=== PATIENT | female | born 1945 | race Caucasian/White ===

== ENCOUNTER → 2018-02-15 | Outpatient (CLI) | payer OTHER | END | disposition home or self-care (01) | LOC: RAH 10:03 | PROVIDERS: ATTEND Family Medicine | DX: Z12.31 Encounter for screening mammogram for malignant neoplasm of breast (principal) | CPT/HCPCS: 77067 ==

== ENCOUNTER 2018-03-21 22:48 | Emergency (ER) | payer OTHER ==
[2018-03-21] MEDS ORDERED: ACETAMINOPHEN-CODEINE ELIXIR 5 ML UDCUP ONE (23:43)
[2018-03-21 23:49] LABS: BASOPHILS % (AUTO) 0.7 % (0.0-5.0); EOSINOPHILS % (AUTO) 3.1 % (0.0-8.0); HEMATOCRIT 35.9 % (36-48); LYMPHOCYTES % (AUTO) 29.1 % (21.0-51.0); MEAN CORPUSCULAR HEMOGLOBIN 30.9 pg (27.0-33.0); MEAN CORPUSCULAR HGB CONC 33.2 g/dL (32.0-36.0); MEAN CORPUSCULAR VOLUME 93.1 fL (79-99); MONOCYTES % (AUTO) 6.4 % (3.0-13.0); NEUTROPHILS % (AUTO) 60.7 % (40.0-77.0); PLATELET COUNT (AUTO) 250 K/uL (130-400); RED BLOOD CELL COUNT(AUTO) 3.85 MIL/uL (4.00-5.50); RED CELL DISTRIBUTION WIDTH 13.9 % (11.0-15.5); WHITE BLOOD COUNT (AUTO) 6.4 K/uL (4.8-10.8)
[2018-03-21 23:57] LABS: CREATININE 0.8 mg/dL (0.5-1.5); POTASSIUM 3.8 mmol/L (3.5-5.1)
[2018-03-21 23:59] LABS: INR 0.96 (0.85-1.15); PARTIAL THROMBOPLASTIN TIME 25.9 SEC (26.3-35.5); PROTHROMBIN TIME 10.1 SEC (9.6-11.6)
[2018-03-22 00:02] LABS: ALBUMIN 3.5 g/dL (3.5-5.0); BILIRUBIN,TOTAL 0.2 mg/dL (0.2-1.0); TOTAL PROTEIN, SERUM 7.1 g/dL (6.0-8.3)
== END 2018-03-22 01:20 | disposition home or self-care (01) ==
LOC: EDH 22:48
DX: S80.02XA Contusion of left knee, initial encounter (principal); I10 Essential (primary) hypertension; E78.5 Hyperlipidemia, unspecified; E03.9 Hypothyroidism, unspecified; Z88.0 Allergy status to penicillin; W18.39XA Other fall on same level, initial encounter; Y93.01 Activity, walking, marching and hiking; Y92.098 Other place in other non-institutional residence as the place of occurrence of the external cause; Y99.8 Other external cause status
CPT/HCPCS: 36415; 73562; 73700; 80053; 85025; 85610; 85730; 93005

== ENCOUNTER → 2019-08-31 | Outpatient (CLI) | payer OTHER | END | disposition home or self-care (01) | LOC: RAH 09:55 | PROVIDERS: ATTEND Family Medicine | DX: Z12.31 Encounter for screening mammogram for malignant neoplasm of breast (principal) | CPT/HCPCS: 77067 ==

== ENCOUNTER → 2021-01-11 | Outpatient (CLI) | payer OTHER | END | disposition home or self-care (01) | LOC: RAH 08:38 | PROVIDERS: ATTEND Family Medicine | DX: Z12.31 Encounter for screening mammogram for malignant neoplasm of breast (principal) | CPT/HCPCS: 77067 ==

== ENCOUNTER 2025-01-02 21:52 | Observation (INO) | payer OTHER ==
[~2025-01-02] VITALS: Ht 175.3 cm; Wt 30.9 kg
--- NOTE | 2025-01-02 22:00 | NUR ---
PATIENT TAKEN TO CT SCAN
--- NOTE | 2025-01-02 22:30 | NUR ---
PATIENT BACK FROM CT SCAN
--- NOTE | 2025-01-02 22:44 | HMCIMG ---
CT HEAD/BRAIN W/O CONTRAST HISTORY: Status post fall COMPARISON: 01/02/2025 TECHNIQUE: Multiple sequential axial images of the head were obtained from the base of the skull through vertex. Patient was not given contrast through intravenous route. FINDINGS: The ventricles and extraventricular CSF spaces are dilated consistent with cerebral atrophy. Nonspecific white matter changes seen. There is right frontal scalp soft tissue swelling. There is no midline shift, mass effect or herniation. No acute intracranial bleed is seen. Visualized portion of the paranasal sinuses are grossly within normal limits. IMPRESSION: 1. No acute intracranial bleed is seen. 2. Atrophy with white matter changes. CT was performed with one or more following dose reduction techniques: automated exposure control, adjustment of the mA and kv according to patient's size, or use of a iterative reconstruction technique.
--- NOTE | 2025-01-02 22:47 | HMCIMG ---
CT CERVICAL SPINE W/O CONTRAST HISTORY: Status post trauma COMPARISON: None TECHNIQUE: Multiple sequential axial images of the cervical spine were obtained including post processing sagittal and coronal reconstruction images. Patient was not given contrast through intravenous route. FINDINGS: There are degenerative changes with cervical spine spondylosis. Disc space narrowing are seen at C5-6 and C6-7 levels. There is disc/osteophyte complex at C3-4 and C5-6 levels. There is straightening of normal lordotic cervical curvature which may be related to muscle spasm or positioning. There is no loss of vertebral height. Evaluation for disc and cord pathology is limited with CT study. No evidence of fracture or dislocation is seen. IMPRESSION: 1. No fracture is seen. DJD. CT was performed with one or more following dose reduction techniques: automated exposure control, adjustment of the mA and kv according to patient's size, or use of a iterative reconstruction technique.
--- NOTE | 2025-01-02 22:54 | HMCIMG ---
CT CHEST/ABD/PELV W/O CONTRAST HISTORY: Trauma COMPARISON: None TECHNIQUE: Multiple sequential axial images of the chest were obtained from the thoracic inlet through upper abdomen. Patient was not given contrast through intravenous route. FINDINGS: There is no evidence of pulmonary nodule or parenchymal disease. No pleural effusion or pericardial effusion is seen. There is no evidence of pneumothorax. There are normal size mediastinal and hilar lymph nodes. The heart is not enlarged. Degenerative changes of the thoracolumbar spine are present. There is no evidence of adrenal nodule. IMPRESSION: 1. No evidence of pulmonary nodule or effusion is seen. CT CHEST/ABD/PELV W/O CONTRAST HISTORY: Trauma COMPARISON: None TECHNIQUE: Multiple sequential axial images of the abdomen and pelvis were obtained from the dome of the diaphragm through symphysis pubis. Patient was not given contrast through intravenous route. Oral contrast was not given. FINDINGS: The liver, spleen, adrenal glands and pancreas are unremarkable. No hydronephrosis is seen on the left. There is right hydronephrosis. If there is clinical suspicion for pyelonephritis, urinalysis correlation with helpful. No evidence of renal stone is seen. There is diverticulosis. Fecal material is seen in the colon. There are normal size retroperitoneal and mesenteric lymph nodes. No ascites is seen. Atherosclerotic changes are present. Pelvic sidewalls are symmetric bilaterally. There is left hip prosthesis causing artifacts limiting evaluation. Bladder is poorly distended without wall thickening. IMPRESSION: 1. Right hydronephrosis. Diverticulosis. No ascites. No acute findings. CT was performed with one or more following dose reduction techniques: automated exposure control, adjustment of the mA and kv according to patient's size, or use of a iterative reconstruction technique.
[2025-01-02 22:58] LABS: BASOPHILS # (AUTO) 0.04 K/uL (0.00-0.20); BASOPHILS % (AUTO) 0.5 % (0.0-5.0); EOSINOPHILS # (AUTO) 0.13 K/uL (0.00-0.70); EOSINOPHILS % (AUTO) 1.5 % (0.0-8.0); HEMATOCRIT 35.9 % (36-48); IMMATURE GRANULOCYTE ABSOLUTE 0.03 K/uL (0-1); LYMPHOCYTES # (AUTO) 1.9 K/uL (1.0-4.8); LYMPHOCYTES % (AUTO) 21.7 % (21.0-51.0); MEAN CORPUSCULAR HEMOGLOBIN 30.1 pg (27.0-33.0); MEAN CORPUSCULAR HGB CONC 32.3 g/dL (32.0-36.0); MEAN CORPUSCULAR VOLUME 93.2 fL (79-99); MONOCYTES # (AUTO) 0.6 K/uL (0.1-1.0); NEUTROPHILS # (AUTO) 6.1 K/uL (1.8-7.7); PLATELET COUNT (AUTO) 234 K/uL (130-400); RED BLOOD CELL COUNT(AUTO) 3.85 MIL/uL (4.00-5.50); RED CELL DISTRIBUTION WIDTH 13.8 % (11.0-15.5); WHITE BLOOD COUNT (AUTO) 8.8 K/uL (4.8-10.8)
[2025-01-02] MEDS: ondanSETRON 4MG INJ IVP ONE (23:07)
[2025-01-02] MEDS: morPHINE 2 MG SYG IVP ONE (23:08)
[2025-01-02 23:18] LABS: ALBUMIN 3.4 g/dL (3.5-5.0); BILIRUBIN,TOTAL 0.3 mg/dL (0.2-1.0); CREATININE 0.9 mg/dL (0.5-1.0); TOTAL PROTEIN, SERUM 6.9 g/dL (6.0-8.3)
[2025-01-03] MEDS ORDERED: acetaMINOPHEN 650 MG SUPPOSITORY RC PRN (00:30)
[2025-01-03] MEDS ORDERED: ondanSETRON 4MG INJ IVP PRN (00:30)
[2025-01-03] MEDS ORDERED: LAbetaLOL 20MG SYG IV PRN (00:30)
[2025-01-03] MEDS ORDERED: HYDROcodone/APAP 5/325 1 TAB TABLET PO PRN (00:30)
[2025-01-03] MEDS ORDERED: ALBUTEROL 0.083% 2.5 MG/3 ML INH IH PRN (00:30)
[2025-01-03] MEDS: PoTASSium BIcarbonate/CIT AC 25 MEQ TABLET.EFF PO ONE (00:48)
[2025-01-03] MEDS: LACTATED RINGERS 1000ML 1,000 ML IV SCH (00:48)
--- NOTE | 2025-01-03 00:54 | ERN ---
General Chief Complaint: Mechanical Fall Stated Complaint: GLF Time Seen by MD: 21:53 History of Present Illness Initial Comments 79-year-old female came in for a fall. Patient was it was has no concerns. Allergies: Coded Allergies: Penicillins (Unverified Allergy, Unknown, 01/02/25) Past Medical History Past Medical History: Arrythmia, Dementia, Depression, Hypertension Past Surgical History: None ROS Dictation Headache Physical Exam Physical Exam Dictation VITAL SIGNS: Reviewed. GENERAL APPEARANCE: Alert, oriented x3, no acute distress, obese. HEAD AND FACE: Non-traumatic. EYES: PERRL, pink conjunctivas, eyelid no trauma, anterior chamber clear. EARS: Pinnas intact and no signs of trauma or erythema. Ear canals clear and no discharge. TMs no erythema. NOSE: No discharge, no bleeding. OROPHARYNX: Mouth normal, teeth no caries, tongue pink. Pharynx clear, no erythema. Tonsils no exudates, no abscesses noted. Mucous membrane moist. NECK: Supple, non-tender, no thyromegaly, no masses, no JVD, no bruits. BREAST: Deferred. CHEST: No tenderness, no crepitus, no paradoxical movement, no retractions. LUNGS: Clear, well-ventilated, symmetric, no rales, no wheezing, no rhonchi, no stridor, good breath sounds bilaterally. HEART: Regular rate, regular rhythm, no murmur, no gallops. VASCULAR: No peripheral edema. ABDOMEN: Soft, positive bowel sounds, nondistended, no guarding, nontender, no rebound, no masses no hepatomegaly, no splenomegaly, no Mchugh's sign, no hernias. RECTAL: Deferred. GENITAL: Deferred. NEUROLOGICAL: Normal speech, gross motor function intact, gross sensory function intact. MUSCULOSKELETAL: Neck nontender, full range of motion, back nontender, full range of motion. EXTREMITIES: Nontender, full range of motion. SKIN: Color pink, dry, no turgor, no rash, no lacerations, no abrasions, no contusions. LYMPHATICS: Deferred. MDM MDM: Differential diagnosis: Rationale: Tests considered and ordered secondary to shared decision making include: labs, ECG and radiology Previous outside records reviewed: Old ER visits. Risk of complication and/or morbidity or mortality of patient management: None Medications-Per medication reconciliation Need for hospitalization: Patient does meet criteria for hospitalization. Need for emergency major/minor surgery: No There are no social concerns with this patient. Prescription drug management Prescriptions will include symptomatic care Patient's prior external medical records from other ER visits were reviewed by me as indicated. Prior testing and results from previous visits were reviewed. Prior tests were taken into account with medical decision making and resource utilization, independent historian/historians were used to obtain complete medical history. I independently interpreted the test that were performed, results were reviewed by me and considered findings on radiology if ordered. Medical management and examination interpretation discussions were had by me with other qualified healthcare professionals as indicated for the patient's care. ED Course Vital Signs Date Time Temp Pulse Resp B/P (MAP) Pulse Ox O2 Delivery O2 Flow Rate FiO2 01/02/25 21:53 98.1 66 16 129/85 99 0 DX & DISP Disposition: Inpatient Departure Impression: Primary Impression: Hypokalemia Additional Impression: Fall Condition: Stable Referrals: CHITRA PARKER MD (PCP) TIKA TRACY MD Jan 03, 2025 00:54
[2025-01-03 01:30] VITALS: PULSE 56; RESP 18; O2SAT 96
[2025-01-03] MEDS ORDERED: LEVO50TA11 PO (02:43)
[2025-01-03] MEDS ORDERED: DONE23TA14 PO (02:43)
[2025-01-03] MEDS ORDERED: MEMA5TAB16 PO (02:43)
[2025-01-03] MEDS ORDERED: APIX5TAB PO (02:43)
[2025-01-03] MEDS ORDERED: TOLT1TAB13 PO (02:43)
[2025-01-03] MEDS ORDERED: SERT-440 PO (02:43)
[2025-01-03] MEDS: INSULIN humuLIN R 100 UNIT/ML 3ML SQ SCH (07:30)
--- NOTE | 2025-01-03 09:01 | HMCIMG ---
Exam Type: HIP BILAT 3-4VW History: TRAUMA ALERT Comparison: none Findings: There is status post hip replacement with adequate visualization and alignment of bony and hardware elements. No complications are seen. Bone density is preserved. No acute fractures or dislocations are seen. No blastic or lytic lesions or bones are identified. The soft tissues are unremarkable. Impression: No acute pathology.
[2025-01-03] MEDS: ASCORBIC ACID 500 MG TAB PO SCH (09:29)
[2025-01-03] MEDS: FAMOTIDINE 20MG TAB PO SCH (09:29)
[2025-01-03] MEDS ORDERED: PoTASSium chl 10% ELIXIR 20MEQ 20 MEQ/15 ML UDCUP PO PRN (11:30)
[2025-01-03] MEDS: PoTASSium chloRIDE 20MEQ ER 20 MEQ ERTAB PO PRN (11:42)
--- NOTE | 2025-01-03 11:46 | NUR ---
DCP: [facility] Pt is a resident at [facility] for past year reports daughter Simi Cohn [phone]. Pt is total care and requires supervision because she wonders. Pt has a walker with seat, nurses assist with ADLS and feedings. PCP is Dr Reinoso and [facility] provides medications. Family takes pt out every Thurs for family dinners and pt is able to transport by car. Per daughter pt will return to [facility] [place]. Addendum: 01/03/25 at 1147 by MARINA RODRIGUEZ Amended: Links added.
[2025-01-03 14:28] VITALS: PULSE 62; RESP 18; O2SAT 99
--- NOTE | 2025-01-03 15:25 | HP ---
[facility] HISTORY & PHYSICAL Date Patient Seen: Jan 03, 2025 Time of Visit: 15:25 Supervising Physician: Dr. Bhanu Mercado Primary Care Physician: [ ] Outpatient Specialists: [ ] Inpatient Consults: [ ] PROBLEM LIST: Mechanical fall at home Head contusion Depression Dementia HPI: Patient was a 79-year-old female who was evaluated at bedside in the ED with daughter present, daughter states that the patient was a resident in the [facility] [place]. From the history in the chart, patient, as well as daughter it appears that the patient was trying to get herself out of her bed at which point her legs gave out and she fell. Patient with a proximally a 4 x 4 cm head contusion above the right orbit, CT scan negative for any acute findings. Patient also had a cervical x-ray and hip x-ray which were both unremarkable. CT abdomen shows mild hydronephrosis, patient currently on room air, denies any discomfort during urination however daughter states that earlier she was seeing her urine was burning. We are pending results on urinalysis at this time for evaluation of UTI. Patient's white count is 8.8 today and hemoglobin is 11.6. Creatinine remains in normal limits at 0.9. Currently no plans to change medical management, patient will remain with the overnight for observation and possible CT scan in the morning if mental status exhibits any changes. Patient with severe dementia, history was obtainable through a co nversation with the patient as well as daughter at bedside. PAST MEDICAL HX: see above PAST SURGICAL HX: noncontributory SOCIAL HISTORY: No tobacco, ETOH, or illicit drug use Coded Allergies: Penicillins (Unverified Allergy, Unknown, 01/02/25) REVIEW OF SYSTEMS: 12 point ROS reviewed with patient. Pertinent positives mentioned above. Otherwise negative. PHYSICAL EXAM: GENERAL: alert, weak, awake oriented x 3 HEENT: EOMI, Sclera non icteric, moist mucosa NECK: Supple, no JVD, trachea midline LUNGS: Clear breath sounds bilaterally. No wheezes HEART: Regular rate and rhythm. Normal S1 and S2, without murmurs ABD: Abdomen soft, nontender. Bowel sounds present EXT: No clubbing cyanosis or edema NEURO: Alert and oriented to person, follows commands Vital Signs (last 8hr) Date Time Temp Pulse Resp B/P (MAP) Pulse Ox O2 Delivery O2 Flow Rate FiO2 01/03/25 14:28 62 18 N/A Room Air 0.0 21 01/03/25 12:00 98.1 52 18 159/51 98 Room Air* 0 21 01/03/25 08:00 98.1 65 14 135/75 99 Room Air* 0 21 LABS: Hematology Labs: Test 01/02/25 22:51 Range/Units White Blood Count 8.8 4.8-10.8 K/uL Red Blood Count 3.85 L 4.00-5.50 MIL/uL Hemoglobin 11.6 L 12.0-16.0 g/dL Hematocrit 35.9 L 36-48 % Mean Corpuscular Volume 93.2 79-99 fL Mean Corpuscular Hemoglobin 30.1 27.0-33.0 pg Mean Corpuscular Hemoglobin Concent 32.3 32.0-36.0 g/dL Red Cell Distribution Width 13.8 11.0-15.5 % Platelet Count 234 130-400 K/uL Mean Platelet Volume 10.0 7.5-10.5 fL Immature Granulocyte % (Auto) 0.3 0-1 % Neutrophils (%) (Auto) 69.0 40.0-77.0 % Lymphocytes (%) (Auto) 21.7 21.0-51.0 % Monocytes (%) (Auto) 7.0 3.0-13.0 % Eosinophils (%) (Auto) 1.5 0.0-8.0 % Basophils (%) (Auto) 0.5 0.0-5.0 % Neutrophils # (Auto) 6.1 1.8-7.7 K/uL Lymphocytes # (Auto) 1.9 1.0-4.8 K/uL Monocytes # (Auto) 0.6 0.1-1.0 K/uL Eosinophils # (Auto) 0.13 0.00-0.70 K/uL Basophils # (Auto) 0.04 0.00-0.20 K/uL Absolute Immature Granulocyte (auto 0.03 0-1 K/uL Nucleated Red Blood Cells 0.0 0.0-0.19 % Chemistry Labs: Test 01/02/25 22:51 Range/Units Sodium Level 140 136-145 mmol/L Potassium Level 3.0 *L 3.5-5.1 mmol/L Chloride Level 104 101-111 mmol/L Carbon Dioxide Level 31 21-32 mmol/L Blood Urea Nitrogen 25 H 7-18 mg/dL Creatinine 0.9 0.5-1.0 mg/dL Glomerular Filtration Rate Calc 65 >90 mL/min Random Glucose 96 70-105 mg/dL Total Calcium 9.1 8.5-10.1 mg/dL Total Bilirubin 0.3 0.2-1.0 mg/dL Aspartate Amino Transf (AST/SGOT) 19 10-37 U/L Alanine Aminotransferase (ALT/SGPT) 19 12-78 U/L Alkaline Phosphatase 90 50-136 U/L Total Creatine Kinase 77 21-232 U/L Total Protein 6.9 6.0-8.3 g/dL Albumin 3.4 L 3.5-5.0 g/dL DIAGNOSTICS / RADIOLOGY RESULTS: [ ] PLAN NEURO: Minimize central acting medications as possible. Maintain fall precautions, adequate lighting during the day PULMONARY: Supplemental 02 as needed. Maintain aspiration precautions at all times CARDIOVASCULAR: Follow hemodynamics. Vital signs per facility protocol GI & NUTRITION: Continue with nutritional support. Continue stool softeners and laxatives as needed. KIDNEYS & ELECTROLYTES: Strict monitoring of intake, output and overall fluid balance. Avoid nephrotoxic medications to the extent possible. Medications to be dosed according to renal function. Monitor electrolytes and replace as needed ENDOCRINE: Maintain blood glucose between 100-180 at all times. Hypoglycemia protocol in place INFECTIOUS DISEASE: Trend temperature, WBC and procalcitonin level Follow cultures, deescalate antibiotics as soon as possible. Panculture if new onset fever ONCOLOGY/HEMATOLOGY/COAGULATION: Monitor for s/s of bleeding Monitor hemoglobin, coagulation studies as needed SKIN: Pressure ulcer prevention per facility protocol Specialty mattress ORTHO/REHAB: Continue PT/OT Prophylaxis: Continue GI and DVT prophylaxis Code Status: Full Resuscitation Disposition: TBD Other: Total patient care time exceeds 35 minutes excluding all procedures. LELE GARG Jan 03, 2025 15:25
[2025-01-03 16:47] LABS: APPEARANCE,URINE CLOUDY (CLEAR); BILIRUBIN,URINE NEGATIVE (NEGATIVE); COLOR,URINE LIGHT-YELLOW (YELLOW); GLUCOSE, URINE (UA) NEGATIVE (NEGATIVE); KETONES,URINE NEGATIVE (NEGATIVE); LEUKOCYTE ESTERASE ,URINE 250 Leu/uL (NEGATIVE); NITRATE,URINE NEGATIVE (NEGATIVE); OCCULT BLOOD,URINE NEGATIVE (NEGATIVE); PH,URINE 7.5 (5.0-8.0); PROTEIN,URINE NEGATIVE (NEGATIVE); UROBILINOGEN,URINE 0.2 mg/dL (0.2-1.0)
[2025-01-03 17:23] LABS: ADD UA MICROSCOPIC YES
[2025-01-03 17:26] LABS: BACTERIA,URINE FEW /HPF (None Seen); SQUAMOUS EPITHELIAL CELL,UR RARE /HPF (0-2); UNCLASSIFIED CRYSTAL 8 /HPF (None Seen); YEAST,URINE BUDDING RARE /HPF (None Seen)
[2025-01-03 20:10] VITALS: PULSE 65; RESP 18; O2SAT 99
[2025-01-03] MEDS: PoTASSium chloRIDE 20MEQ/100ML 100 ML IV PRN (21:29)
[2025-01-03] MEDS: LORazepam 2 MG/ML 1 ML VIAL ONE (22:45)
[2025-01-03] MEDS: LORazepam 2 MG/ML 1 ML VIAL IVP ONE (22:45)
--- NOTE | 2025-01-03 22:51 | NUR ---
PATIENT REPORT GIVEN TO DOMI DEXTER
--- NOTE | 2025-01-03 23:08 | NUR ---
DAUGHTER JACKELINE NOTIFIED OF PATIENT GOING TO ROOM 403
[2025-01-03 23:30] VITALS: BP 160/105; PULSE 61; RESP 25; TEMP 98.1; O2SAT 98
--- NOTE | 2025-01-03 23:30 | NUR ---
arrival patient arrived to room 403. patient alert but not oriented. she is confused. plan of care still discussed with her and she ignores me. she is pulling at her IV catheter, punching and kicking the nursing staff and trying to get out of bed. Pictures taken of her bruising on her right forehead and her right back. Zinc cream applied to her buttocks for her mild rash. Patient has been gagging and had a small emesis on arrival. Suction set up is at bedside. Araceli is at bedside at a one to one sitter. I called logan hackett np, for an order. pending call back. Patient has not slept tonight. She does not like to be touched. When we turn her or change her brief, she starts punching the nursing staff. Door open, sitter, at bedside, call light within reach. will continue to monitor patient.
[2025-01-04] VITALS (8 sets, daily range): BP systolic 148–181; BP diastolic 58–88; PULSE 56–78; RESP 16–20; TEMP 97.6–98.2; O2SAT 98–99
--- NOTE | 2025-01-04 01:32 | NUR ---
home medications called [facility] for patient's home medications 5 times. there was no answer.
[2025-01-04 04:59] LABS: BASOPHILS # (AUTO) 0.02 K/uL (0.00-0.20); BASOPHILS % (AUTO) 0.2 % (0.0-5.0); EOSINOPHILS # (AUTO) 0.08 K/uL (0.00-0.70); EOSINOPHILS % (AUTO) 0.9 % (0.0-8.0); HEMATOCRIT 36.2 % (36-48); IMMATURE GRANULOCYTE ABSOLUTE 0.02 K/uL (0-1); LYMPHOCYTES # (AUTO) 1.1 K/uL (1.0-4.8); LYMPHOCYTES % (AUTO) 12.7 % (21.0-51.0); MEAN CORPUSCULAR HEMOGLOBIN 30.3 pg (27.0-33.0); MEAN CORPUSCULAR VOLUME 94.5 fL (79-99); MONOCYTES # (AUTO) 0.3 K/uL (0.1-1.0); MONOCYTES % (AUTO) 3.8 % (3.0-13.0); NEUTROPHILS # (AUTO) 7.1 K/uL (1.8-7.7); NEUTROPHILS % (AUTO) 82.2 % (40.0-77.0); PLATELET COUNT (AUTO) 208 K/uL (130-400); RED BLOOD CELL COUNT(AUTO) 3.83 MIL/uL (4.00-5.50); WHITE BLOOD COUNT (AUTO) 8.6 K/uL (4.8-10.8)
[2025-01-04 05:10] LABS: CREATININE 0.8 mg/dL (0.5-1.0); MAGNESIUM 1.9 mg/dL (1.80-2.40); PHOSPHORUS 3.3 mg/dL (2.5-4.9); POTASSIUM 4.7 mmol/L (3.5-5.1)
[2025-01-04] MEDS ORDERED: CEFTRIAXONE 2GM VIAL IVPB SCH (09:00)
[2025-01-04] MEDS: MAGNESIUM 2GM PREMIX 50ML 50 ML IV PRN (11:23)
[2025-01-04] MEDS: hydrALAZine 20MG/ML VIAL IV PRN (12:10)
--- NOTE | 2025-01-04 13:18 | NUR ---
[place] spoke with Ammy montes updated medlist, will be faxed to us.
[2025-01-04] MEDS ORDERED: VALS1TAB2 PO (13:40)
[2025-01-04] MEDS ORDERED: CHOL200074 PO (13:42)
--- NOTE | 2025-01-04 15:29 | HMCIMG ---
Exam Type: CT HEAD/BRAIN W/O CONTRAST Clinical Information: change in mental status Comparison: None CT Dose Index (CTDI): 57.33 mGy Dose Length Product (DLP): 956.79 total mGy-cm Findings: The examination shows atrophy. There is low attenuation throughout the periventricular white matter locations, consistent with chronic small vessel ischemic changes. No acute intra- or extra-axial fluid collections are seen. There is no evidence of acute or chronic hemorrhage. There is no mass effect or shift of midline structures. There are no areas to suggest acute infarct. The skull windows show no significant abnormalities. IMPRESSION: 1. ATROPHY AND CHRONIC SMALL VESSEL ISCHEMIC CHANGES. This study was performed using dose reduction techniques to include automated exposure control and/or adjustment of the mA and/or kV according to patient size.
--- NOTE | 2025-01-04 15:30 | PN ---
[facility] PROGRESS NOTE Date Patient Seen: Jan 04, 2025 Time of Visit: 15:30 Supervising Physician: Dr. Simon Carmichael Primary Care Physician: [ ] Outpatient Specialists: [ ] Inpatient Consults: [ ] PROBLEM LIST: Mechanical fall at home Acute complicated cystitis Head contusion Depression Dementia INTERVAL HISTORY: Patient evaluated at bedside today in her room, patient's mental status appears to be altered today from the baseline that I saw her at yesterday. Daughter endorses that the patient appears to be more confused, much more lethargic today. CT scan this morning shows no changes from prior scan, diffuse white matter atrophy. Patient was found to have complicated cystitis, pending culture at this time, patient has been started on Rocephin we will continue to monitor her progress overnight with possible discharge back to [facility] for continued care and treatment. Placing orders for IV fluid hydration at 50 mL/hour overnight. REVIEW OF SYSTEMS: 12 point ROS reviewed with patient. Pertinent positives mentioned above. Otherwise negative. PHYSICAL EXAM: GENERAL: alert, weak, awake oriented x 3 HEENT: EOMI, Sclera non icteric, moist mucosa NECK: Supple, no JVD, trachea midline LUNGS: Clear breath sounds bilaterally. No wheezes HEART: Regular rate and rhythm. Normal S1 and S2, without murmurs ABD: Abdomen soft, nontender. Bowel sounds present EXT: No clubbing cyanosis or edema NEURO: Alert and oriented to person, follows commands Vital Signs (last 8hr) Date Time Temp Pulse Resp B/P (MAP) Pulse Ox O2 Delivery O2 Flow Rate FiO2 01/04/25 11:55 98.1 56 20 181/86 99 Room Air 21 01/04/25 08:19 97.9 56 20 180/78 99 Room Air 01/04/25 08:00 99 Room Air* 0 21 01/04/25 07:35 78 18 N/A Room Air 0.0 21 LABS: Hematology Labs: Test 01/04/25 04:36 Range/Units White Blood Count 8.6 4.8-10.8 K/uL Red Blood Count 3.83 L 4.00-5.50 MIL/uL Hemoglobin 11.6 L 12.0-16.0 g/dL Hematocrit 36.2 36-48 % Mean Corpuscular Volume 94.5 79-99 fL Mean Corpuscular Hemoglobin 30.3 27.0-33.0 pg Mean Corpuscular Hemoglobin Concent 32.0 32.0-36.0 g/dL Red Cell Distribution Width 14.0 11.0-15.5 % Platelet Count 208 130-400 K/uL Mean Platelet Volume 10.1 7.5-10.5 fL Immature Granulocyte % (Auto) 0.2 0-1 % Neutrophils (%) (Auto) 82.2 H 40.0-77.0 % Lymphocytes (%) (Auto) 12.7 L 21.0-51.0 % Monocytes (%) (Auto) 3.8 3.0-13.0 % Eosinophils (%) (Auto) 0.9 0.0-8.0 % Basophils (%) (Auto) 0.2 0.0-5.0 % Neutrophils # (Auto) 7.1 1.8-7.7 K/uL Lymphocytes # (Auto) 1.1 1.0-4.8 K/uL Monocytes # (Auto) 0.3 0.1-1.0 K/uL Eosinophils # (Auto) 0.08 0.00-0.70 K/uL Basophils # (Auto) 0.02 0.00-0.20 K/uL Absolute Immature Granulocyte (auto 0.02 0-1 K/uL Nucleated Red Blood Cells 0.0 0.0-0.19 % Chemistry Labs: Test 01/04/25 11:35 01/04/25 04:36 01/02/25 22:51 Range/Units Whole Blood Glucose 67 L 70-110 MG/DL Sodium Level 144 136-145 mmol/L Potassium Level 4.7 3.5-5.1 mmol/L Chloride Level 109 101-111 mmol/L Carbon Dioxide Level 30 21-32 mmol/L Blood Urea Nitrogen 18 7-18 mg/dL Creatinine 0.8 0.5-1.0 mg/dL Glomerular Filtration Rate Calc 75 >90 mL/min Random Glucose 117 H 70-105 mg/dL Total Calcium 8.9 8.5-10.1 mg/dL Phosphorus Level 3.3 2.5-4.9 mg/dL Magnesium Level 1.90 1.80-2.40 mg/dL Total Bilirubin 0.3 0.2-1.0 mg/dL Aspartate Amino Transf (AST/SGOT) 19 10-37 U/L Alanine Aminotransferase (ALT/SGPT) 19 12-78 U/L Alkaline Phosphatase 90 50-136 U/L Total Creatine Kinase 77 21-232 U/L Total Protein 6.9 6.0-8.3 g/dL Albumin 3.4 L 3.5-5.0 g/dL DIAGNOSTICS / RADIOLOGY RESULTS: [ ] PLAN NEURO: Minimize central acting medications as possible. Maintain fall precautions, adequate lighting during the day PULMONARY: Supplemental 02 as needed. Maintain aspiration precautions at all times CARDIOVASCULAR: Follow hemodynamics. Vital signs per facility protocol GI & NUTRITION: Continue with nutritional support. Continue stool softeners and laxatives as needed. KIDNEYS & ELECTROLYTES: Strict monitoring of intake, output and overall fluid balance. Avoid nephrotoxic medications to the extent possible. Medications to be dosed according to renal function. Monitor electrolytes and replace as needed ENDOCRINE: Maintain blood glucose between 100-180 at all times. Hypoglycemia protocol in place INFECTIOUS DISEASE: Trend temperature, WBC and procalcitonin level Follow cultures, deescalate antibiotics as soon as possible. Panculture if new onset fever ONCOLOGY/HEMATOLOGY/COAGULATION: Monitor for s/s of bleeding Monitor hemoglobin, coagulation studies as needed SKIN: Pressure ulcer prevention per facility protocol Specialty mattress ORTHO/REHAB: Continue PT/OT Prophylaxis: Continue GI and DVT prophylaxis Code Status: Full Resuscitation Disposition: TBD Other: Total patient care time exceeds 35 minutes excluding all procedures. LELE GARG Jan 04, 2025 15:30
[2025-01-04] MEDS: NITROFURANTOIN MONOHYD/M-CRYST 100 MG CAPSULE PO SCH (19:45)
[2025-01-05] VITALS (10 sets, daily range): BP systolic 119–168; BP diastolic 51–87; PULSE 59–71; RESP 16–18; TEMP 98.1–98.9; O2SAT 97–98
[2025-01-05 06:13] LABS: HEMATOCRIT 40.1 % (36-48); MEAN CORPUSCULAR HEMOGLOBIN 29.9 pg (27.0-33.0); MEAN CORPUSCULAR HGB CONC 31.7 g/dL (32.0-36.0); MEAN CORPUSCULAR VOLUME 94.4 fL (79-99); RED BLOOD CELL COUNT(AUTO) 4.25 MIL/uL (4.00-5.50); RED CELL DISTRIBUTION WIDTH 13.9 % (11.0-15.5); WHITE BLOOD COUNT (AUTO) 6.3 K/uL (4.8-10.8)
[2025-01-05 06:32] LABS: ALBUMIN 3.2 g/dL (3.5-5.0); BILIRUBIN,TOTAL 0.6 mg/dL (0.2-1.0); CREATININE 0.8 mg/dL (0.5-1.0); MAGNESIUM 2.2 mg/dL (1.80-2.40); POTASSIUM 3.9 mmol/L (3.5-5.1); TOTAL PROTEIN, SERUM 6.9 g/dL (6.0-8.3)
[2025-01-05] MEDS: acetaMINOPHEN 325 MG TAB PO PRN (09:30)
--- NOTE | 2025-01-05 15:46 | HMCIMG ---
Exam Type: US RENAL SONOGRAM Clinical Information: hydronephrosis Comparison: None Findings: Examination shows normal renal size and echogenicity bilaterally. Preserved cortical thickness and corticomedullary junction region is seen. No calculi are seen either side. Mild right hydronephrosis. No hydronephrosis left side. No renal masses are seen. There is no evidence of perinephric fluid on either side. No evidence of significant ureteral dilatation is seen. The urinary bladder is normal. No bladder masses, stones, or wall thickening is seen. IMPRESSION: Mild right hydronephrosis.
[2025-01-05] MEDS ORDERED: SULF1TAB42 PO (16:14)
--- NOTE | 2025-01-05 18:22 | NUR ---
PT eval recd at 1730. Pt seen for DCP. Pt is alert to name and follows instructions with extra cues. Pt easily distracted. Pt is DE for bed mob, SBA for transfer and CGA for gait. Pt not able to safely use walker without assistance. Pt walked 400 ft at CGA mainly due to distraction. Pt will benefit from HHPT, may benefit from 2ww if able to learn to safely use it with HHPT. would not adivse DC with a walker at this point. Pt is still a fall risk, primarily due to safety and impulsiveness, and easily distracted. Pt was on 1:1 sitter at time of eval.
--- NOTE | 2025-01-05 19:25 | NUR ---
DISCHARGE PATIENT HAS BEEN DISCHARGED HOME. PIV REMOVED. PRESSURE GAUZE AND TAPE APPLIED TO SITE. DAUGHTER MADE AWARE OF DISCHARGE TO [facility]. EMS CALLED. EMS HERE TO TRANSFER PATIENT TO [facility].
--- NOTE | 2025-01-05 20:06 | DS ---
[facility] DISCHARGE SUMMARY Date Patient Seen: Jan 05, 2025 Time of Visit: 20:02 Supervising Physician: [ ] Supervising Physician: Dr. Simon Carmichael Primary Care Physician: [ ] Outpatient Specialists: [ ] Inpatient Consults: [ ] HOSPITAL COURSE: HPI (per admitting provider) Patient was a 79-year-old female who was evaluated at bedside in the ED with daughter present, daughter states that the patient was a resident in the [facility] at [place]. From the history in the chart, patient, as well as daughter it appears that the patient was trying to get herself out of her bed at which point her legs gave out and she fell. Patient with a proximally a 4 x 4 cm head contusion above the right orbit, CT scan negative for any acute findings. Patient also had a cervical x-ray and hip x-ray which were both unremarkable. CT abdomen shows mild hydronephrosis, patient currently on room air, denies any discomfort during urination however daughter states that earlier she was seeing her urine was burning. We are pending results on urinalysis at this time for evaluation of UTI. Patient's white count is 8.8 today and hemoglobin is 11.6. Creatinine remains in normal limits at 0.9. Currently no plans to change medical management, patient will remain with the overnight for observation and possible CT scan in the morning if mental status exhibits any changes. Patient with severe dementia, history was obtainable through a conversation with the patient as well as daughter at bedside. The patient was treated for the following problems: Patient was evaluated following mechanical fall in his assisted living center, patient has been extensive radiological workup which showed no broken bones, no subdural hematoma or subarachnoid hemorrhage. Patient suffered slight Infectious encephalopathy secondary to UTI which was unknown response to the infection. Patient was being discharged with Bactrim, freely mobile with phy sical therapy. ACTIVE PROBLEM LIST FOR THE HOSPITALIZATION: Mechanical fall at home, negative for acute findings on radiological examination Acute complicated cystitis, treating Head contusion CHRONIC PROBLEMS: continue previous management per PCP unless otherwise indicated Depression Dementia COLD PATCHER FINDINGS/RECOMMENDATIONS: [ ] PROCEDURES: as mentioned above DISCHARGE MEDICATIONS: Pt hemodynamically stable and afebrile at time of discharge. PCP notified of patients admission, hospital course and discharge. PHYSICAL EXAM: GENERAL: alert, weak, awake oriented x 3 HEENT: EOMI, Sclera non icteric, moist mucosa NECK: Supple, no JVD, trachea midline LUNGS: Clear breath sounds bilaterally. No wheezes HEART: Regular rate and rhythm. Normal S1 and S2, without murmurs ABD: Abdomen soft, nontender. Bowel sounds present EXT: No clubbing cyanosis or edema NEURO: Alert and oriented to person, follows commands FOLLOW-UP: Follow-up with PCP in 2-3 days RECOMMENDATIONS: See Discharge Instructions This case was seen and discussed with my supervising physician. More than 30 minutes spent on discharge process, including evaluation of the patient, dis cussion with nursing staff, medication reconciliation and follow-up appointments LELE GARG Jan 05, 2025 20:06
== END 2025-01-05 19:20 | disposition still patient (30) ==
LOC: EDH 21:52 → UNDOADMOB 21:53 → EDHIP 21:53 → 4AH 01-03 22:39
PROVIDERS: ADMIT Internal Medicine; ATTEND Internal Medicine
DX: S00.93XA Contusion of unspecified part of head, initial encounter (principal); N30.00 Acute cystitis without hematuria; E87.6 Hypokalemia; F03.C3 Unspecified dementia, severe, with mood disturbance; F32.A Depression, unspecified; I10 Essential (primary) hypertension; N13.6 Pyonephrosis; Z88.0 Allergy status to penicillin; Z98.890 Other specified postprocedural states; Z79.899 Other long term (current) drug therapy; W18.39XA Other fall on same level, initial encounter; Y93.89 Activity, other specified; Y92.098 Other place in other non-institutional residence as the place of occurrence of the external cause; Y99.8 Other external cause status
CPT/HCPCS: 96375 ×3; 99285; 82550 ×2; 80053 ×2; 85025 ×2; 36415 ×3; 73522; 70450 ×2; 72125; 71250; 74176; 96361; 96365; 87086 ×2; 87186; 82948 ×8; 81001; 96366; 83735 ×2; 84100; 80048; 85027; 76770; 97161; 97116; 97530 ×2; J2270; J2405; G0378 ×55; J2060; J3480 ×2; J3475; J0360